=== PATIENT | female | born 1965 | race Caucasian/White ===

== ENCOUNTER 2017-09-07 16:54 | Emergency (ER) | payer BC ==
--- NOTE | 2017-09-07 16:58 | PDOC ---
Rapid Medical Evaluation Time Seen by Provider: 09/07/17 16:56 Medical Evaluation: Allergies Allergy/AdvReac Type Severity Reaction Status Date / Time No Known Allergies Allergy Verified 04/17/16 00:08 09/07/17 16:56 I have performed a brief in-person evaluation of this patient. The patient presents with a chief complaint of: dysuria Pertinent physical exam findings: ABD: SNTND M/S: No CVAT. I have ordered the following: UA, Urine cx The patient will proceed to the ED for further evaluation. Discharge Disposition - Diagnosis UTI (urinary tract infection) Qualifiers: Urinary tract infection type: site unspecified Hematuria presence: without hematuria Qualified Code(s): N39.0 - Urinary tract infection, site not specified - Referrals - Patient Instructions - Post Discharge Activity
[2017-09-07 17:00] VITALS: BP 146/89; PULSE 70; TEMP 98; BMI 28.3
[2017-09-07 17:18] LABS: URINE APPEARANCE CLOUDY; URINE BILIRUBIN NEGATIVE (NEGATIVE); URINE BLOOD 1+ (NEGATIVE); URINE COLOR AMBER; URINE GLUCOSE (UA) NEGATIVE (NEGATIVE); URINE KETONE NEGATIVE (NEGATIVE); URINE NITRITE POSITIVE (NEGATIVE); URINE PROTEIN NEGATIVE (NEGATIVE)
[2017-09-07 17:23] LABS: URINE HYALINE CAST 50 /lpf; URINE MUCUS RARE; URINE RBC 10; URINE WBC 26
[2017-09-07] MEDS ORDERED: NITROFURANTOIN MACROCRYSTAL 50 MG CAPSULE (FP) ONE (17:50)
--- NOTE | 2017-09-07 17:50 | PDOC ---
History of Present Illness - General Chief Complaint: Urinary Problem Stated Complaint: UTI Time Seen by Provider: 09/07/17 16:56 History Source: Patient Exam Limitations: No Limitations - History of Present Illness Initial Comments: 09/07/17 17:45 Patient is a [51 y/o female with history of HTN, presents with dysuria, frequency, has a history HTN presents with dysuria, frequency, no hematuria. No fever, no back pain. ] Past Medical History: High blood pressure Allergies: No known allergies Medications: [hydroChlorothiazide, bysystolic] Family History: Non-contributory Social History: Denies smoking, alcohol use, or IVDU Review of Systems GENERAL/CONSTITUTIONAL: [No fever or chills. No weakness. No weight change.] HEAD, EYES, EARS, NOSE AND THROAT: [No change in vision. No ear pain or discharge. No sore throat. ] CARDIOVASCULAR: [No chest pain or shortness of breath.] RESPIRATORY: [No cough, wheezing, or hemoptysis.] GASTROINTESTINAL: [No nausea, vomiting, diarrhea or constipation. No rectal bleeding.] GENITOURINARY: [Pain on urination, frequency, no hematuria] MUSCULOSKELETAL: [No joint or muscle swelling or pain. No neck or back pain.] SKIN AND BREASTS: [No rash or easy bruising.] NEUROLOGIC: [No headache, vertigo, loss of consciousness, or loss of sensation.] PSYCHIATRIC: [No depression or anxiety.] ENDOCRINE: [No increased thirst. No abnormal weight change.] HEMATOLOGIC/LYMPHATIC: [No anemia, easy bleeding, or history of blood clots.] ALLERGIC/IMMUNOLOGIC: [No hives or skin allergy. No latex allergy.] Physical Exam: GENERAL: [The patient is awake, alert, and fully oriented, in no acute distress. ] LUNGS: [Breath sounds equal, clear to auscultation bilaterally. No wheezes, and no crackles.] HEART: [Regular rate and rhythm, normal S1 and S2 without murmur, rub or gallop. ] ABDOMEN: [Soft, nontender, normoactive bowel sounds. No guarding, no rebound. No masses. No bruising or abrasions] MUSCULOSKELETAL: [Normal range of motion, no edema. No clubbing or cyanosis. No cords, erythema, or tenderness. No CVA Tenderness with fist palpation.] NEUROLOGICAL: [Cranial nerves II through XII grossly intact. Normal speech, normal gait.] SKIN: [Warm, Dry, normal turgor, no rashes or lesions noted.] Past History - Past Medical History Allergies/Adverse Reactions: Allergies Allergy/AdvReac Type Severity Reaction Status Date / Time No Known Allergies Allergy Verified 09/07/17 16:58 Home Medications: Ambulatory Orders Fluconazole [Diflucan] 150 mg PO ONCE #1 tablet 09/07/17 Nitrofurantoin Monohyd/M-Cryst [Macrobid -] 100 mg PO BID #14 capsule 09/07/17 COPD: No HTN: Yes - Suicide/Smoking/Psychosocial Hx Smoking History: Never smoked Have you smoked in the past 12 months: No Hx Alcohol Use: No Drug/Substance Use Hx: No *Physical Exam - Vital Signs Last Vital Signs Temp Pulse Resp BP Pulse Ox 98 F 70 19 146/89 97 09/07/17 16:58 09/07/17 16:58 09/07/17 16:58 09/07/17 16:58 09/07/17 16:58 ED Treatment Course - ADDITIONAL ORDERS Additional order review: Laboratory Results 09/07/17 17:00 Urine Color Rukhsana Urine Appearance Cloudy Urine pH 5.0 Ur Specific [place] 1.014 Urine Protein Negative Urine Glucose (UA) Negative Urine Ketones Negative Urine Blood 1+ H Urine Nitrite Positive Urine Bilirubin Negative Urine Urobilinogen 2.0 H Urine WBC (Auto) 26 Urine RBC (Auto) 10 Ur Epithelial Cells Many Hyaline Casts 50 Urine Mucus Rare Medical Decision Making - Medical Decision Making 09/07/17 17:46 A/P: Patient here for evaluation of dysuria, without hematuria, has been taking [id number] with some resolve has had urinary tract infections in the past states that having similar symptoms. Urinalysis, urine culture sent Laboratory Results - last 24 hr 09/07/17 17:00 Urine Color Rukhsana Urine Appearance Cloudy Urine pH 5.0 Ur Specific [place] 1.014 Urine Protein Negative Urine Glucose (UA) Negative Urine Ketones Negative Urine Blood 1+ H Urine Nitrite Positive Urine Bilirubin Negative Urine Urobilinogen 2.0 H Urine WBC (Auto) 26 Urine RBC (Auto) 10 Ur Epithelial Cells Many Hyaline Casts 50 Urine Mucus Rare Findings consistent with urinary tract infection anticipation of Macrobid, follow-up with PMD if any increased pain, hematuria, or any other concerns return to ER. I discussed the physical exam findings, ancillary test results and final diagnoses with the patient. I answered all of the patient's questions. The patient was satisfied with the care received and felt comfortable with the discharge plan and treatment plan. The patient will call to arrange follow-up and will return to the Emergency Department with any new, persistent or worsening symptoms. *DC/Admit/Observation/Transfer Diagnosis at time of Disposition: UTI (urinary tract infection) Qualifiers: Urinary tract infection type: site unspecified Hematuria presence: without hematuria Qualified Code(s): N39.0 - Urinary tract infection, site not specified - Discharge Dispostion Disposition: HOME Condition at time of disposition: Good Admit: No - Prescriptions Prescriptions: Fluconazole [Diflucan] 150 mg PO ONCE #1 tablet Nitrofurantoin Monohyd/M-Cryst [Macrobid -] 100 mg PO BID #14 capsule - Referrals - Patient Instructions Printed Discharge Instructions: DI for Urinary Tract Infection (UTI) Additional Instructions: Increase fluids, follow-up with PMD in 2 days of fever or symptoms persist - Post Discharge Activity Forms/Work/School Notes: Back to Work
[2017-09-07] MEDS ORDERED: NITROFURANTOIN MACROCRYSTAL 50 MG CAPSULE (FP) PO SCH (18:00)
[2017-09-07 22:01] LABS: URINE LEUK ESTERASE TRACE (NEGATIVE)
== END 2017-09-07 17:52 | disposition home or self-care (01) ==
LOC: JERFT 16:54
DX: N39.0 Urinary tract infection, site not specified (principal); I10 Essential (primary) hypertension
CPT/HCPCS: 81003; 81015; 87086; 99281-25